=== PATIENT | male | born 1950 | race Caucasian/White ===

== ENCOUNTER 2018-12-21 09:26 | Emergency (ER) | payer OTHER, MEDICARE ==
[2018-12-21] MEDS ORDERED: Sodium Chloride 0.9% 10 ML Syringe FLUSH PRN (09:45)
--- NOTE | 2018-12-21 10:00 | EDM.PDOC ---
ED HPI GENERAL MEDICAL PROBLEM - General Chief Complaint: Cardiovascular Problem Stated Complaint: LIGHT HEADED; HIGH BP Time Seen by Provider: 12/21/18 09:40 Source of Information: Reports: Patient, Family, RN History Limitations: Reports: No Limitations - History of Present Illness INITIAL COMMENTS - FREE TEXT/NARRATIVE: 68 yr male presents with elevated BP and some light headedness this am and some nausea and pressure to ears. He did take his medications this am. He did have 2 stent placed in September at [facility]. States alysa of 4 stents many years ago and has been taking Metoprolol and Plavix and ASA for about 12 year. States hx of small stroke, seizure activity and hemochromatosis. States he isn' t having any chest pain today. BP is improved 159/91 and pulse is 54 today. Pt is alert and talkative. is with him today. He doesn't have a list of his medications. States he has 4 new medications since September, but can't remember the names. - Related Data Allergies Allergy/AdvReac Type Severity Reaction Status Date / Time Penicillins Allergy Hives Verified 12/21/18 09:57 Sulfa (Sulfonamide Allergy Hives Verified 12/21/18 09:57 Antibiotics) Home Meds: Home Meds Aspirin [Ecotrin] 81 mg PO DAILY 06/13/14 [History] Clopidogrel [Plavix] 75 mg PO DAILY 06/13/14 [History] Metoprolol Succinate [Toprol XL 100mg] 50 mg PO QPM 06/13/14 [History] Nitroglycerin [Nitrostat] 0.4 mg SL ASDIRECTED PRN 06/13/14 [History] Pravastatin [Pravachol] 40 mg PO QPM 06/17/14 [History] ClonazePAM [KlonoPIN] 0.5 mg PO TID PRN 02/25/16 [History] Omeprazole 20 mg PO BIDAC 02/25/16 [History] Ramipril [Altace] 10 mg PO BID 02/25/16 [History] levETIRAcetam [Keppra] 500 mg PO BID 03/20/18 [History] Saw [place] 160 mg PO DAILY 09/10/18 [History] cloNIDine [Catapres] 0.1 mg PO Q12HR PRN #20 tab 12/21/18 [Rx] Past Medical History Cardiovascular History: Reports: High Cholesterol, Hypertension, DC, Stents Respiratory History: Reports: SOB Gastrointestinal History: Reports: Other (See Below) Other Gastrointestinal History: epigastric pain, uses maalox Musculoskeletal History: Reports: Arthritis Neurological History: Reports: CVA Endocrine/Metabolic History: Reports: Other (See Below) Other Endocrine/Metabolic History: prediabetes Hematologic History: Reports: Hemochromatosis Immunologic History: Reports: None Other Dermatologic History: itching lower legs - Infectious Disease History Infectious Disease History: Reports: Chicken Pox, Measles - Past Surgical History Cardiovascular Surgical History: Reports: Coronary Artery Stent GI Surgical History: Reports: Hernia, Abdominal Social & Family History - Family History Family Medical History: Noncontributory - Caffeine Use Caffeine Use: Reports: Coffee ED ROS GENERAL - Review of Systems Review Of Systems: See Below Constitutional: Reports: No Symptoms HEENT: Reports: Other (some pressure to ears). Denies: Glasses, Hearing Loss Respiratory: Denies: Shortness of Breath, Cough, Sputum Cardiovascular: Reports: Blood Pressure Problem, Lightheadedness. Denies: Chest Pain Endocrine: Reports: No Symptoms GI/Abdominal: Reports: Nausea. Denies: Constipation, Diarrhea, Vomiting : Reports: No Symptoms Musculoskeletal: Reports: Neck Pain (States chronic neck pain, from injury in past) Skin: Reports: No Symptoms Neurological: Denies: Headache, Trouble Speaking, Difficulty Walking Psychiatric: Reports: No Symptoms Hematologic/Lymphatic: Reports: No Symptoms Immunologic: Reports: No Symptoms ED EXAM, GENERAL - Physical Exam Exam: See Below Exam Limited By: No Limitations General Appearance: Alert, No Apparent Distress Ears: Hearing Grossly Normal Nose: Normal Inspection, Normal Mucosa Throat/Mouth: Normal Voice, No Airway Compromise Head: Atraumatic, Normocephalic Neck: Normal Inspection, Supple, Non-Tender Respiratory/Chest: No Respiratory Distress, Lungs Clear, Normal Breath Sounds, Chest Non-Tender Cardiovascular: Normal Peripheral Pulses, Regular Rate, Rhythm, No Edema GI/Abdominal: Normal Bowel Sounds, Soft, Non-Tender Back Exam: Normal Inspection, Full Range of Motion Extremities: Normal Range of Motion, No Pedal Edema, Normal Capillary Refill Neurological: Alert, Oriented, Normal Cognition Psychiatric: Normal Affect, Normal Mood Skin Exam: Warm, Dry, Normal Color Lymphatic: No Adenopathy EKG INTERPRETATION EKG Date: 12/21/18 Rhythm: NSR Comparison: No Change Course - Vital Signs Last Recorded V/S: Last Vital Signs Temp 97.5 F 12/21/18 12:30 Pulse 55 L 12/21/18 12:30 Resp 18 12/21/18 12:30 BP 139/81 12/21/18 12:30 Pulse Ox 99 12/21/18 12:30 - Orders/Labs/Meds Orders: Active Orders 24 hr Category Date Time Status Cardiac Monitoring [RC] .As Directed Care 12/21/18 12:21 Active EKG Documentation Completion [RC] ASDIRECTED Care 12/21/18 09:43 Active Saline Lock Insert [OM.PC] Routine Oth 12/21/18 09:45 Ordered Labs: Laboratory Tests 12/21/18 12/21/18 Range/Units 09:50 09:50 WBC 5.7 (4.0-11.0) K/uL RBC 5.17 (4.50-6.50) M/uL Hgb 16.5 (13.0-18.0) g/dL Hct 48.3 (40.0-54.0) % MCV 93 (76-96) fL MCH 31.9 (27.0-32.0) pg MCHC 34.2 (31.0-35.0) g/dL RDW 13.1 (11.0-16.0) % Plt Count 170 (150-400) K/uL MPV 10.4 H (6.0-10.0) fL Neut % (Auto) 66.3 (45.0-70.0) % Lymph % (Auto) 20.7 (20.0-40.0) % Frontier % (Auto) 10.6 H (3.0-10.0) % Eos % (Auto) 1.9 (1.0-5.0) % Baso % (Auto) 0.5 (0.0-0.5) % Neut # (Auto) 3.75 (2.00-7.50) K/uL Lymph # (Auto) 1.17 L (1.50-4.00) K/uL Frontier # (Auto) 0.60 (0.20-0.80) K/uL Eos # (Auto) 0.11 (0.04-0.40) K/uL Baso # (Auto) 0.03 (0.02-0.10) K/uL Sodium 140 (136-145) mmol/L Potassium 4.1 (3.5-5.1) mmol/L Chloride 105 (98-107) mmol/L Carbon Dioxide 24.9 (21.0-32.0) mmol/L Anion Gap 14.2 (5.0-15.0) mmol/L BUN 20 D (8-26) mg/dL Creatinine 1.12 (0.70-1.30) mg/dL Est Cr Clr Drug Dosing TNP Estimated GFR (MDRD) > 60 (>60) MLS/MIN BUN/Creatinine Ratio 17.9 (6-25) Glucose 123 H (74-100) mg/dL Calcium 9.5 (8.5-10.1) mg/dL Total Bilirubin 0.7 (0.0-1.0) mg/dL AST 27 (15-37) U/L ALT 34 (12-78) U/L Alkaline Phosphatase 65 (46-116) U/L Troponin I 0.004 D (0.000-0.060) ng/mL Total Protein 7.7 (6.4-8.2) g/dL Albumin 3.8 (3.4-5.0) g/dL Globulin 3.9 (2.2-4.2) g/dL Albumin/Globulin Ratio 1.0 (0.8-2.0) Meds: Medications Discontinued Medications Generic Name Dose Route Start Last Admin Trade Name Freq PRN Reason Stop Dose Admin Clonidine HCl 0.1 mg 12/21/18 11:06 12/21/18 11:12 Catapres PO 12/21/18 11:07 0.1 mg ONETIME ONE Administration Clonidine HCl Confirm 12/21/18 11:17 12/21/18 12:01 Catapres Administered 12/21/18 11:18 Not Given Dose 0.1 mg .ROUTE .STK-MED ONE Sodium Chloride 10 ml 12/21/18 09:45 Saline Flush FLUSH ASDIRECTED PRN Keep Vein Open - Re-Assessments/Exams Free Text/Narrative Re-Assessment/Exam: 12/21/18 12:[address] 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 Reviewed EKG and labs. Troponins negative. No change from previous EKG. Clonidine 0.1 mg PO given and BP improved 130/80. Contact to [facility], casey saw operator Greer and TC to pager of cardiology ornamental iron erector. Pt is feeling better, nausea has improved, dizziness has improved and no pressure to ears. Pt is eating lunch and sitting at bedside. Will continue to contact cardiology. Will discharge pt to care of family. Rest today and Return to [facility] appointment in December. Will give Rx for Clonidine 0.1 mg PO bid to use prn for hypertension until his return appointment at the [facility]. Departure - Departure Time of Disposition: 12:56 Disposition: Home, Self-Care 01 Condition: Good Clinical Impression: Hypertension Prescriptions: cloNIDine [Catapres] 0.1 mg PO Q12HR PRN #20 tab PRN Reason: Hypertension Instructions: How to Take Your Blood Pressure, [id number], Hypertension, Easy -to-Read, Preventing Hypertension Referrals: PCP,None [Primary Care Provider] - Forms: ED Department Discharge Additional Instructions: Take Clonidine 0.1mg every 12 hours as needed for high BP. continue to take prescribed meds. Follow up with [facility] [facility] on January 03 as scheduled. Call Clinic if you do not receive call from Nida Ann NP regarding her talk with your [facility] provider on your medications for BP - My Orders Last 24 Hours: My Active Orders 12/21/18 09:43 EKG Documentation Completion [RC] ASDIRECTED 12/21/18 09:45 Saline Lock Insert [OM.PC] Routine 12/21/18 12:21 Cardiac Monitoring [RC] .As Directed - Assessment/Plan Last 24 Hours: My Active Orders 12/21/18 09:43 EKG Documentation Completion [RC] ASDIRECTED 12/21/18 09:45 Saline Lock Insert [OM.PC] Routine 12/21/18 12:21 Cardiac Monitoring [RC] .As Directed Plan: Will discharge pt to care of family. Rest today and Return to [facility]. Will give Rx for Clonidine 0.1 mg PO bid to use prn for hypertension until his return appointment at the [facility]. TC with cardiology at [facility]. Discussion of EKG and normal troponin level and hypertension and use of Clonidine prn up to bid as needed for hypertension. Reviewed medication list and no other changes at this time. Pt alert, talkative and had lunch and is feeling better. Discharged in no acute distress. States he can have family take care of animals at home and can rest for a couple days as needed and will continue to monitor the BP. Return to ER if any chest pain or if symptoms worsen or persist.
[2018-12-21] MEDS ORDERED: cloNIDine 0.1 MG Tab PO ONE (11:06)
[2018-12-21] MEDS ORDERED: cloNIDine 0.1 MG Tab ONE (11:17)
[2018-12-21 13:13] VITALS: BP 139/81
== END 2018-12-21 13:00 | disposition home or self-care (01) ==
LOC: LB.ED 09:26
DX: I10 Essential (primary) hypertension (principal); E78.00 Pure hypercholesterolemia, unspecified; I25.2 Old myocardial infarction; Z86.73 Personal history of transient ischemic attack (TIA), and cerebral infarction without residual deficits; Z79.899 Other long term (current) drug therapy; Z79.82 Long term (current) use of aspirin; Z88.0 Allergy status to penicillin; Z88.2 Allergy status to sulfonamides
CPT/HCPCS: 36415; 80053; 84484; 85025; 93005; 99284-25; A9270-GY

== ENCOUNTER 2022-11-09 10:07 | Emergency (ER) | payer OTHER ==
[2022-11-09] MEDS: Aluminum Hydroxide/Magnesium Hydroxide/Simethicone Susp 30 ML Cup PO PRN (10:35)
[2022-11-09] MEDS: Lidocaine 2% Viscous Solution 15 ML UD PO ONE (10:35)
[2022-11-09] MEDS: Sodium Chloride 0.9% 10 ML Syringe FLUSH PRN (10:55)
[2022-11-09 11:31] LABS: TROPONIN I HIGH SENSITIVITY 17.8 pg/ml (<=60.4)
[2022-11-09] MEDS: GI Cocktail Oral Solution 30 ML PO ONE (12:35)
[2022-11-09 16:32] VITALS: BP 169/84; PULSE 58
== END 2022-11-09 13:30 | disposition home or self-care (01) ==
LOC: LB.ED 10:07
DX: K21.9 Gastro-esophageal reflux disease without esophagitis (principal); I25.10 Atherosclerotic heart disease of native coronary artery without angina pectoris; E78.00 Pure hypercholesterolemia, unspecified; I10 Essential (primary) hypertension; I25.2 Old myocardial infarction; Z88.0 Allergy status to penicillin; Z88.2 Allergy status to sulfonamides; Z79.899 Other long term (current) drug therapy
CPT/HCPCS: 36415; 71045; 80053; 81003; 82728; 83690; 84484; 85027; 93005; 93010; 99282; 99284; A9270-GY; J3490

== ENCOUNTER 2023-03-26 10:21 | Emergency (ER) | payer OTHER ==
[2023-03-26] MEDS ORDERED: Sodium Chloride 0.9% 10 ML Syringe FLUSH PRN (10:29)
[2023-03-26 10:40] LABS: HEMATOCRIT 43.8 % (40.0-54.0); HEMOGLOBIN 14.7 g/dL (13.0-18.0); MEAN CORPUSCULAR HEMOGLOBIN 32.5 pg (27.0-32.0); MEAN CORPUSCULAR HGB CONC 33.6 g/dL (31.0-35.0); MEAN PLATELET VOLUME 10.7 fL (6.0-10.0); RED BLOOD CELL COUNT 4.52 M/uL (4.50-6.50); RED CELL DISTRIBUTION WIDTH 13.3 % (11.0-16.0)
[2023-03-26] MEDS: hydrALAZINE 20 MG/ML SDV IVPUSH ONE ×2 (10:55→12:13)
[2023-03-26 11:07] LABS: ALANINE AMINOTRANSFERASE,ALT 24 U/L (12-78); ALBUMIN 3.6 g/dL (3.4-5.0); ALKALINE PHOSPHATASE 76 U/L (46-116); ASPARTATE AMNIOTRANSFERASE,AST 22 U/L (15-37); B-TYPE NATRIURETIC PEPTIDE,BNP 540 pg/mL (0-450); BILIRUBIN TOTAL 0.6 mg/dL (0.0-1.0); BLOOD UREA NITROGEN,BUN 16 mg/dL (8-26); BUN/CREATININE RATIO 13.9 (6-25); CALCIUM 9.3 mg/dL (8.5-10.1); CARBON DIOXIDE,CO2 30.3 mmol/L (21.0-32.0); CHLORIDE,CL 107 mmol/L (98-107); CREATININE 1.15 mg/dL (0.70-1.30); ESTIMATED GFR 66 mL/min (>60); GLUCOSE RANDOM 125 mg/dL (74-100); PHOSPHORUS 2.7 mg/dL (2.5-4.9); POTASSIUM,K 4.3 mmol/L (3.5-5.1); PROTEIN TOTAL,TP 7.2 g/dL (6.4-8.2); SODIUM,NA 142 mmol/L (136-145); TROPONIN I HIGH SENSITIVITY 18.8 pg/ml (<=60.4)
[2023-03-26] MEDS ORDERED: Isosorbide Mononitrate 30 MG Tab.ER ONE (14:15)
[2023-03-26 16:21] VITALS: BP 145/74; PULSE 57
== END 2023-03-26 14:35 | disposition home or self-care (01) ==
LOC: LB.ED 10:21
DX: I10 Essential (primary) hypertension (principal); I25.10 Atherosclerotic heart disease of native coronary artery without angina pectoris; I25.2 Old myocardial infarction; E78.00 Pure hypercholesterolemia, unspecified; K21.9 Gastro-esophageal reflux disease without esophagitis; M19.90 Unspecified osteoarthritis, unspecified site; Z87.891 Personal history of nicotine dependence; Z88.0 Allergy status to penicillin; Z88.2 Allergy status to sulfonamides; Z79.899 Other long term (current) drug therapy; Z79.82 Long term (current) use of aspirin
CPT/HCPCS: 36415; 71045; 80053; 83735; 83880; 84100; 84484; 85027; 93005; 96374; 99284-25; A9270-GY; J0360; J3490

== ENCOUNTER 2023-04-25 00:56 | Emergency (ER) | payer OTHER ==
[2023-04-25 01:50] VITALS: BP 178/97; PULSE 58
[2023-04-25 01:52] LABS: BASOPHILS ABSOLUTE AUTO 0.03 K/uL (0.02-0.10); BASOPHILS PERCENT AUTO 0.4 % (0.0-0.5); EOSINOPHILS ABSOLUTE AUTO 0.12 K/uL (0.04-0.40); EOSINOPHILS PERCENT AUTO 1.6 % (1.0-5.0); HEMATOCRIT 44.3 % (40.0-54.0); HEMOGLOBIN 14.9 g/dL (13.0-18.0); LYMPHOCYTES ABSOLUTE AUTO 1.55 K/uL (1.50-4.00); LYMPHOCYTES PERCENT AUTO 21.3 % (20.0-40.0); MEAN CORPUSCULAR HEMOGLOBIN 32.2 pg (27.0-32.0); MEAN CORPUSCULAR HGB CONC 33.6 g/dL (31.0-35.0); MEAN CORPUSCULAR VOLUME 96 fL (76-96); MEAN PLATELET VOLUME 10.2 fL (6.0-10.0); MONOCYTES ABSOLUTE AUTO 0.58 K/uL (0.20-0.80); NEUTROPHILS PERCENT AUTO 68.7 % (45.0-70.0); PLATELET COUNT,PLT 164 K/uL (150-400); RED BLOOD CELL COUNT 4.63 M/uL (4.50-6.50); RED CELL DISTRIBUTION WIDTH 12.9 % (11.0-16.0); WHITE BLOOD CELL COUNT,WBC 7.3 K/uL (4.0-11.0)
[2023-04-25 02:06] LABS: ANION GAP 9.4 mmol/L (5.0-15.0); CALCIUM 9.4 mg/dL (8.5-10.1); CARBON DIOXIDE,CO2 30.4 mmol/L (21.0-32.0); CREATININE 1.2 mg/dL (0.70-1.30); EST CRCL DRUG DOSING (CG) 63.57 mL/min; POTASSIUM,K 4.8 mmol/L (3.5-5.1)
== END 2023-04-25 02:55 | disposition home or self-care (01) ==
LOC: LB.ED 00:56
DX: I11.9 Hypertensive heart disease without heart failure (principal); K21.9 Gastro-esophageal reflux disease without esophagitis; I25.2 Old myocardial infarction; Z88.0 Allergy status to penicillin; Z88.2 Allergy status to sulfonamides; Z79.02 Long term (current) use of antithrombotics/antiplatelets; Z79.899 Other long term (current) drug therapy; Z79.82 Long term (current) use of aspirin; Z87.891 Personal history of nicotine dependence
CPT/HCPCS: 36415; 80048; 84484; 85025; 93005; 93010; 99283

== ENCOUNTER 2024-03-19 09:46 | Emergency (ER) | payer OTHER ==
[2024-03-19 10:43] LABS: BASOPHILS ABSOLUTE AUTO 0.03 K/uL (0.02-0.10); BASOPHILS PERCENT AUTO 0.4 % (0.0-0.5); EOSINOPHILS ABSOLUTE AUTO 0.07 K/uL (0.04-0.40); HEMATOCRIT 47.1 % (40.0-54.0); HEMOGLOBIN 15.9 g/dL (13.0-18.0); LYMPHOCYTES ABSOLUTE AUTO 1.03 K/uL (1.50-4.00); LYMPHOCYTES PERCENT AUTO 14.1 % (20.0-40.0); MEAN CORPUSCULAR HEMOGLOBIN 33.3 pg (27.0-32.0); MEAN CORPUSCULAR HGB CONC 33.8 g/dL (31.0-35.0); MEAN CORPUSCULAR VOLUME 99 fL (76-96); MEAN PLATELET VOLUME 10.5 fL (6.0-10.0); MONOCYTES ABSOLUTE AUTO 0.73 K/uL (0.20-0.80); NEUTROPHILS ABSOLUTE AUTO 5.44 K/uL (2.00-7.50); NEUTROPHILS PERCENT AUTO 74.5 % (45.0-70.0); PLATELET COUNT,PLT 153 K/uL (150-400); RED BLOOD CELL COUNT 4.77 M/uL (4.50-6.50); RED CELL DISTRIBUTION WIDTH 12.7 % (11.0-16.0); WHITE BLOOD CELL COUNT,WBC 7.3 K/uL (4.0-11.0)
[2024-03-19 10:57] LABS: A/G RATIO 1.1 (0.8-2.0); ALBUMIN 3.9 g/dL (3.4-5.0); ANION GAP 10.3 mmol/L (5.0-15.0); BILIRUBIN TOTAL 1.1 mg/dL (0.0-1.0); BUN/CREATININE RATIO 16.1 (6-25); CALCIUM 9.4 mg/dL (8.5-10.1); CARBON DIOXIDE,CO2 28.1 mmol/L (21.0-32.0); CREATININE 1.12 mg/dL (0.70-1.30); EST CRCL DRUG DOSING (CG) 67.06 mL/min; POTASSIUM,K 4.4 mmol/L (3.5-5.1); PROTEIN TOTAL,TP 7.5 g/dL (6.4-8.2)
[2024-03-19 10:58] LABS: INR 1.1 (1.0-3.5); PTT,PARTIAL THROMBOPLSTIN TIME 27.3 SECONDS (24.4-33.2)
[2024-03-19 11:05] LABS: TROPONIN I HIGH SENSITIVITY 32.6 pg/ml (<=60.4)
[2024-03-19] MEDS: Sodium Chloride 0.9% 50 ML SDV FLUSH ONE (12:05)
[2024-03-19] MEDS: Iopamidol 755 Mg/ML 100 ML Bottle IV SCH (12:05)
[2024-03-19 12:28] LABS: INFLUENZA A NAA NEGATIVE (NEGATIVE); INFLUENZA B NAA NEGATIVE (NEGATIVE); RESPIRATORY SYNCYTIAL VIR NAA NEGATIVE (NEGATIVE)
[2024-03-19 12:32] LABS: CORONAVIRUS COVID-19 NAA NEGATIVE (NEGATIVE)
[2024-03-19] MEDS: Heparin Sodium 5,000 Units/ML Vial IVPUSH ONE (12:38)
[2024-03-19] MEDS: Heparin Sodium/D5W 25,000 UNITS/500 ML BAG IV SCH (12:38)
[2024-03-19] MEDS: Heparin Sodium 1,000 Units/ML 10 ML MDV ONE (12:42)
[2024-03-19] MEDS: Heparin Sodium/D5W 500 ML ONE (12:42)
[2024-03-19 15:41] VITALS: BP 153/92; PULSE 67
== END 2024-03-19 14:06 ==
LOC: LB.ED 09:46
DX: I26.94 Multiple subsegmental thrombotic pulmonary emboli without acute cor pulmonale (principal); I25.2 Old myocardial infarction; K21.9 Gastro-esophageal reflux disease without esophagitis; Z88.0 Allergy status to penicillin; Z88.6 Allergy status to analgesic agent; Z88.2 Allergy status to sulfonamides; Z79.02 Long term (current) use of antithrombotics/antiplatelets; Z79.899 Other long term (current) drug therapy; Z79.82 Long term (current) use of aspirin; Z95.5 Presence of coronary angioplasty implant and graft; Z86.73 Personal history of transient ischemic attack (TIA), and cerebral infarction without residual deficits
CPT/HCPCS: 0241U; 36415; 71045; 71260; 80053; 83605; 83690; 83880; 84484; 85025; 85379; 85610; 85730; 93005; 96365; 99285; J1644; J3490; Q9967

== ENCOUNTER 2024-10-01 15:14 | Emergency (ER) | payer OTHER ==
[2024-10-01 17:52] VITALS: BP 149/79; PULSE 76
== END 2024-10-01 16:45 | disposition home or self-care (01) ==
LOC: LB.ED 15:14
DX: S39.012A Strain of muscle, fascia and tendon of lower back, initial encounter (principal); I25.2 Old myocardial infarction; K21.9 Gastro-esophageal reflux disease without esophagitis; Z95.5 Presence of coronary angioplasty implant and graft; Z79.899 Other long term (current) drug therapy; Z79.82 Long term (current) use of aspirin; Z88.0 Allergy status to penicillin; Z88.2 Allergy status to sulfonamides; Z88.8 Allergy status to other drugs, medicaments and biological substances; X58.XXXA Exposure to other specified factors, initial encounter
CPT/HCPCS: 72100; 99284

== ENCOUNTER 2025-02-05 09:31 | Emergency (ER) | payer OTHER ==
[2025-02-05] MEDS ORDERED: Sodium Chloride 0.9% 10 ML Syringe FLUSH PRN (09:47)
[2025-02-05 09:57] LABS: HEMATOCRIT 43.1 % (40.0-54.0); HEMOGLOBIN 14.7 g/dL (13.0-18.0); MEAN CORPUSCULAR HEMOGLOBIN 33.4 pg (27.0-32.0); MEAN CORPUSCULAR HGB CONC 34.1 g/dL (31.0-35.0); MEAN PLATELET VOLUME 10.8 fL (6.0-10.0); RED BLOOD CELL COUNT 4.4 M/uL (4.50-6.50); RED CELL DISTRIBUTION WIDTH 12.6 % (11.0-16.0); WHITE BLOOD CELL COUNT,WBC 6.3 K/uL (4.0-11.0)
[2025-02-05] MEDS: Sodium Chloride 0.9% 1,000 ML IV SCH (10:01)
[2025-02-05 10:26] LABS: A/G RATIO 0.9 (0.8-2.0); ALBUMIN 3.6 g/dL (3.4-5.0); ANION GAP 13.3 mmol/L (5.0-15.0); BUN/CREATININE RATIO 13.2 (6-25); CALCIUM 9.8 mg/dL (8.5-10.1); CARBON DIOXIDE,CO2 28.8 mmol/L (21.0-32.0); CREATININE 1.29 mg/dL (0.70-1.30); EST CRCL DRUG DOSING (CG) 57.32 mL/min; MAGNESIUM 1.9 mg/dL (1.8-2.4); POTASSIUM,K 4.1 mmol/L (3.5-5.1); PROTEIN TOTAL,TP 7.4 g/dL (6.4-8.2); TROPONIN I HIGH SENSITIVITY 19.6 pg/ml (<=60.4)
[2025-02-05 10:50] LABS: APPEARANCE,URINE CLEAR (CLEAR); BILIRUBIN,URINE NEGATIVE (NEGATIVE); COLOR,URINE YELLOW; GLUCOSE,URINE NEGATIVE (NEGATIVE); KETONES,URINE NEGATIVE (NEGATIVE); LEUKOCYTE ESTERASE,URINE NEGATIVE (NEGATIVE); NITRITE,URINE NEGATIVE (NEGATIVE); OCCULT BLOOD,URINE TRACE-INTACT (NEGATIVE); PH,URINE 5.5 (5.0-8.0); PROTEIN,URINE TRACE mg/dL (NEGATIVE); UROBILINOGEN,URINE 0.2 E.U./dL (0.2-1.0)
[2025-02-05 10:51] LABS: HYALINE CASTS,URINE FEW /HPF; MUCUS,URINE FEW /HPF; RBC,URINE 0-5 /HPF; SQUAMOUS EPITHELIAL CELLS,UR FEW /HPF; WBC,URINE 0-5 /HPF
[2025-02-05 10:52] LABS: AMORPHOUS SEDIMENT,URINE RARE /HPF
[2025-02-05 12:02] VITALS: BP 143/73; PULSE 54
== END 2025-02-05 12:20 | disposition home or self-care (01) ==
LOC: LB.ED 09:31
DX: R42 Dizziness and giddiness (principal); R00.1 Bradycardia, unspecified; I25.10 Atherosclerotic heart disease of native coronary artery without angina pectoris; I25.2 Old myocardial infarction; K21.9 Gastro-esophageal reflux disease without esophagitis; Z79.899 Other long term (current) drug therapy; Z79.01 Long term (current) use of anticoagulants; Z95.5 Presence of coronary angioplasty implant and graft; Z86.73 Personal history of transient ischemic attack (TIA), and cerebral infarction without residual deficits; Z88.0 Allergy status to penicillin; Z88.8 Allergy status to other drugs, medicaments and biological substances; Z88.2 Allergy status to sulfonamides
CPT/HCPCS: 36415; 80053; 81001; 83735; 84484; 85027; 93005; 93010; 96360; 96361; 99284; J7030